=== PATIENT | female | born 1945 | race Caucasian/White ===

== ENCOUNTER → 2016-03-06 | Outpatient (CLI) | payer OTHER, MEDICARE ==
--- NOTE | 2016-03-06 17:12 | MA ---
Screening Digital Mammogram With iCAD Analysis Clinical Indications: Routine screening. Patient has had left breast cancer treated with lumpectomy a nd radiation. Technique: Standard cephalocaudal and mediolateral oblique projections were obtained. This examinatio n was processed by the iCAD computer aided detection system. Comparison: February 2015, February 2014, January 2013, January 2012, December 2010, December 2009, O ctober 2008 Breast density: Type C; Heterogeneously dense. Findings: CAD was reviewed. Architectural change at the left breast lumpectomy site is stable. No ma sses, suspicious calcifications or other signs of malignancy are identified. There has been no signi ficant change in the appearance of either breast. Impression: Benign post lumpectomy mammography, BI-RADS 2. Recommendation: Routine mammographic screening in one year as long as physical [facility]. Dense breast parenchyma diminishes mammographic sensitivity. Negative mammography should not preclude additional workup of a clinically suspicious finding. The patient's information is entered into a reminder system with a target due date for her next mammo gram.
== END ==
LOC: BMCIMAGING 15:04
DX: Z12.31 Encounter for screening mammogram for malignant neoplasm of breast (principal); Z85.3 Personal history of malignant neoplasm of breast; Z92.3 Personal history of irradiation
CPT/HCPCS: G0202

== ENCOUNTER → 2017-03-19 | Outpatient (CLI) | payer OTHER, MEDICARE | LOC: BMCIMAGING 13:38 | PROVIDERS: ATTEND Family Medicine | DX: Z12.31 Encounter for screening mammogram for malignant neoplasm of breast (principal); Z85.3 Personal history of malignant neoplasm of breast ==

== ENCOUNTER 2017-04-28 11:44 | Emergency (ER) | payer OTHER, MEDICARE ==
[2017-04-28 11:54] VITALS: RESP 16
--- NOTE | 2017-04-28 13:10 | EDPHY ---
General - History Smoking Status: Former smoker Time Seen by Provider: 04/28/17 12:51 Narrative: CHIEF COMPLAINT: Fall, right elbow pain HISTORY OF PRESENT ILLNESS: Patient complains of right elbow pain status post fall. She was walking outside earlier today when she slipped on the ice. She landed on her right hip and right elbow. She said she may have struck her head on the right side but has no loss of consciousness or headache. Her pain is only in the right elbow. It is severe. It is worse with any kind of palpation and movement. It is located on the entire elbow. No numbness or tingling. No weakness. No pain in the right hand or wrist. No pain in the right shoulder. She did strike her right hip and was minimally painful earlier but that has resolved. She is able to walk on it without any pain. Abdominal, chest or back pain. No other associated complaints or modifying factors. She does not take any anti coag. Right-hand dominant NPO as of 8:30 a.m. Today REVIEW OF SYSTEMS: Ten systems reviewed and are negative unless otherwise noted in the HPI PCP: Dr. Katharine Santiago SPECIALISTS: None PAST MEDICAL HISTORY: None PAST SURGICAL HISTORY: No recent surgeries SOCIAL HISTORY: Remote smoking history. No drug or alcohol use. Lives and works here locally. 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 No wheezing, rhonchi or crackles Cardiovascular: Regular rate and rhythm. No murmur. Symmetric radial pulses 2 +. Brisk cap refill in the fingers of the right hand. Gastrointestinal: Abdomen is soft and nontender Back: non-tender, no bony abnormalities. No crepitus or deformity. Neurological: A&O, nonfocal, sensation to the back of the hand, palmar surface of the hand and median distribution is symmetric. No wrist drop. Good strength of the interossei symmetrically Skin: Warm and dry, no rash. No erythema. No petechiae or purpura. No laceration or puncture Extremities: Tenderness of the right elbow at the distal humerus. There is no tenderness of the right shoulder, wrist or phalanges of the right hand. Range of motion of the elbow not able to be tested Psychiatric: Mood and affect normal DIFFERENTIAL DIAGNOSES: Including but not limited to fracture, sprain, strain, dislocation, subluxation MDM: 1:00 p.m. Mechanical fall at 10:00 a.m. This morning with the right, close transverse intracranial or fracture of the humerus. She is neuro intact distally with significant pain. No wrist drop. No laceration or puncture. No injury to the shoulder or wrist to the right arm. No head injury. This is the radiologist interpretation I will consult Orthopedics for the recommendation. I have reviewed the radiology findings with the patient and showed her x-rays. 1:20 p.m. Case discussed with orthopedist Dr. Springer. He recommends posterior long-arm splint with sling. He would like to see the patient in his office this week. 1:30 p.m. I have re-evaluated the patient and informed her of this. She is currently receiving Percocet at this time. Splint and Sling will be placed. 2:10 p.m. Posterior long-arm splint and sling has been placed. She has tolerated this and feels better with the splint in place. She is asking me to evaluate right hip at this time. She says she has no pain on and no pain when she walks she would like me to look at it. I have done so in appreciate no abnormality. There is no bruising, abrasion laceration. There is no tenderness of the hip or greater trochanter. She is fully ambulatory on this. At this point she will be discharged home with instructions to contact the orthopedist Dr. Springer. She has nonweightbearing instructions. She has Percocet prescription as needed. She has strict ED precautions and she is comfortable this plan. She is neurovascular intact post splint procedure and discharged home stable condition. SUPERVISION: Patient was independently examined, but I discussed the case with my secondary supervising physician Dr. Gomes Ortho consult by telephone: Dr. Springer ([facility]) Medical Decision Making: I did not see this patient while she was in the emergency department. However her care was discussed with the PA while the patient was in the department. I agree with treatment plan and management (Carlos Eduardo Gomes) - Diagnostics Imaging Results: Imaging Impressions Elbow X-Ray 04/28/17 11:55 Impression: Transverse nondisplaced intercondylar distal right humeral fracture. - Objective Vital Signs: Initial Vital Signs Temperature (C) 36.4 C 04/28/17 11:51 Heart Rate 89 04/28/17 11:51 Respiratory Rate 16 04/28/17 11:51 Blood Pressure 145/65 H 04/28/17 11:51 O2 Sat (%) 99 04/28/17 11:51 O2 Delivery Mode Room Air Allergies/Adverse Reactions: No Known Allergies Allergy (Unverified 04/28/17 11:51) Home Medications: Medication Instructions Recorded oxyCODONE HCL/ACETAMINOPHEN 1 each PO Q4-6PRN PRN #15 tablet 04/28/17 [Percocet 5-325 mg Tablet] Medications Given: Discontinued Medications Ondansetron HCl (Zofran Odt) 4 mg PO EDNOW ONE Stop: 04/28/17 13:26 Last Admin: 04/28/17 13:43 Dose: 4 mg Oxycodone/Acetaminophen (Percocet 5/325) 1 tab PO EDNOW ONE Stop: 04/28/17 13:26 Last Admin: 04/28/17 13:43 Dose: 1 tab Departure - Departure Disposition: Home, Routine, Self-Care Clinical Impression: Nondisplaced transcondylar fracture of humerus Qualifiers: Encounter type: initial encounter Fracture type: closed Laterality: right Qualified Code(s): S42.474A - Nondisplaced transcondylar fracture of right humerus, initial encounter for closed fracture Condition: Good Instructions: Open Reduction and Internal Fixation of an Elbow Fracture in Children (ED), Elbow Fracture (ED) Additional Instructions: 1. Nonweightbearing on the right upper extremity until seen by orthopedist 2. Splint and sling until seen by orthopedist 3. Contact the on-call orthopedist Dr. Springer today for outpatient care 4. Pain medication as prescribed as needed 5. ED precautions as discussed Referrals: Katharine Santiago MD [Primary Care Provider] - As per Instructions Guera Springer MD [Medical Doctor] - As per Instructions Prescriptions: oxyCODONE HCL/ACETAMINOPHEN [Percocet 5-325 mg Tablet] 1 each PO Q4-6PRN PRN # 15 tablet PRN Reason: Pain, Breakthrough
[2017-04-28] MEDS ORDERED: ONDANSETRON DISINTEGRATING 4 MG TAB PO ONE (13:25)
[2017-04-28] MEDS ORDERED: OXYCODONE/APAP 5/325 TAB PO ONE (13:25)
[2017-04-28 14:28] VITALS: BP 118/74; PULSE 75; TEMP 98.1; O2SAT 97
== END 2017-04-28 14:28 | disposition home or self-care (01) ==
DX: S42.474A Nondisplaced transcondylar fracture of right humerus, initial encounter for closed fracture (principal); Z87.891 Personal history of nicotine dependence; W00.0XXA Fall on same level due to ice and snow, initial encounter; Y99.8 Other external cause status; Y93.01 Activity, walking, marching and hiking

== ENCOUNTER → 2018-03-31 | Outpatient (CLI) | payer OTHER, MEDICARE | LOC: BMCIMAGING 13:19 | PROVIDERS: ATTEND Family Medicine | DX: Z12.31 Encounter for screening mammogram for malignant neoplasm of breast (principal); Z85.3 Personal history of malignant neoplasm of breast ==

== ENCOUNTER → 2018-04-02 | Outpatient (CLI) | payer OTHER, MEDICARE | LOC: BMCIMAGING 11:12 | PROVIDERS: ATTEND Family Medicine | DX: R92.8 Other abnormal and inconclusive findings on diagnostic imaging of breast (principal); Z86.000 Personal history of in-situ neoplasm of breast ==

== ENCOUNTER → 2018-05-13 | Outpatient (CLI) | payer OTHER, MEDICARE | LOC: BMCIMAGING 18:27 | PROVIDERS: ATTEND Family Medicine | DX: S49.92XA Unspecified injury of left shoulder and upper arm, initial encounter (principal) ==